=== PATIENT | male | born 1965 | race Two or more races ===

== ENCOUNTER 2021-10-04 06:25 | Emergency (ER) | payer SELFPAY ==
[~2021-10-04] VITALS: Ht 167.6 cm; Wt 81.6 kg
[2021-10-04] MEDS ORDERED: AMOXICILLIN/CLAVUL 875 MG TAB PO ONE (08:00)
[2021-10-04] MEDS ORDERED: CLINDAMYCIN 900MG IV 50 ML IV ONE (08:00)
[2021-10-04] MEDS ORDERED: TETANUS-DIPTH-ACEL PERTUSSIS 0.5ML SYR Tdap IM ONE (08:15)
[2021-10-04 09:01] VITALS: BP 112/76
[2021-10-04] MEDS ORDERED: KETOROLAC TROMETH 30 MG/ML 1ML VIAL IV ONE (09:30)
[2021-10-04] MEDS ORDERED: SULFAMETHOX W/TRIMETH(800/160MG) DS TAB PO ONE (10:45)
== END 2021-10-04 10:51 | disposition home or self-care (01) ==
LOC: ER 06:25
DX: S61.452A Open bite of left hand, initial encounter (principal); F17.210 Nicotine dependence, cigarettes, uncomplicated; W54.0XXA Bitten by dog, initial encounter; Y93.89 Activity, other specified; Y92.89 Other specified places as the place of occurrence of the external cause; Y99.8 Other external cause status
CPT/HCPCS: 73130; 96365; 96375; 99284; J1885; J3490